=== PATIENT | female | born 1965 | race Caucasian/White ===

== ENCOUNTER 2023-06-28 17:18 | Emergency (ER) | payer OTHER, BC ==
[2023-06-28 17:29] VITALS: BP 155/79; PULSE 69; RESP 18; TEMP 98; BMI 23.0
== END 2023-06-28 19:10 | disposition home or self-care (01) ==
LOC: JER 17:18 → JERFT 17:18
DX: S16.1XXA Strain of muscle, fascia and tendon at neck level, initial encounter (principal); X50.9XXA Other and unspecified overexertion or strenuous movements or postures, initial encounter; Y92.838 Other recreation area as the place of occurrence of the external cause
CPT/HCPCS: 72125-TC; 99284-25